=== PATIENT | female | born 1985 | race Caucasian/White ===

== ENCOUNTER 2016-11-10 01:32 | Emergency (ER) | payer OTHER ==
[~2016-11-10] VITALS: Ht 154.9 cm; Wt 88.0 kg
[~2016-11-10 01:32] MED LIST: MOTRIN800 MG PO; ZANTAC150 MG PO
[2016-11-10 01:41] VITALS: BP 104/64
--- NOTE | 2016-11-10 02:24 | NUR ---
PT TAKEN TO BED 7
--- NOTE | 2016-11-10 02:44 | NUR ---
PATIENT PRESENTS TO ED WITH VAGINAL DISCHARGE X1DAY . PT STATES THE DISCHARGE IS WATERY AND RED/BROWN IN COLOR. PT REPORTS BEING 8 WEEKS AT THIS TIME . DENIES N/V/D; SKIN IS PINK/WARM/DRY; AAOX4 WITH EVEN AND STEADY GAIT; LUNGS CLEAR BL; HR EVEN AND REGULAR; PT DENIES ANY FEVER, CP, SOB, OR COUGH AT THIS TIME; PATIENT STATES PAIN OF 0/10 AT THIS TIME; VSS; PATIENT POSITIONED FOR COMFORT; HOB ELEVATED; BEDRAILS UP X2; BED DOWN. ER MD MADE AWARE OF PT STATUS.
--- NOTE | 2016-11-10 02:59 | NUR ---
Ultrasound at bedside.
[2016-11-10 04:10] VITALS: BP 108/63
--- NOTE | 2016-11-10 04:10 | NUR ---
Patient discharged with v/s stable. Written and verbal after care instructions given and explained. Patient verbalized understanding. Ambulatory with steady gait. All questions addressed prior to discharge. Advised to follow up with PMD.
== END 2016-11-10 04:10 | disposition home or self-care (01) ==
LOC: MED 01:32
DX: O26.891 Other specified pregnancy related conditions, first trimester (principal); N89.8 Other specified noninflammatory disorders of vagina; Z3A.08 8 weeks gestation of pregnancy
CPT/HCPCS: 36415; 76801; 81001; 86900; 86901; 87210; 99285; Q0092

== ENCOUNTER 2017-04-08 10:00 | Observation (INO) | payer OTHER ==
[~2017-04-08] VITALS: Ht 154.9 cm; Wt 90.7 kg
[~2017-04-08 10:00] MED LIST changes: +IBUP-974 PO; -MOTRIN800 MG PO; +RANI-287 PO; -ZANTAC150 MG PO
[2017-04-08] MEDS ORDERED: TERBUTALINE 1 MG/ML VIAL SUBQ SCH (13:05)
[2017-04-08] MEDS ORDERED: TERBUTALINE 1 MG/ML VIAL SUBQ ONE (13:11)
[2017-04-08] MEDS ORDERED: LACTATED RINGERS 1,000 ML IV SCH (13:55)
[2017-04-08] MEDS ORDERED: NACL 0.9% 1,000 ML IV SCH (15:45)
[2017-04-08] MEDS ORDERED: cefTRIAXone 2,000 MG in DEXTROSE 5% 100 ML IV SCH (16:00)
[2017-04-08 16:04] LABS: APPEARANCE,URINE CLEAR (CLEAR); BILIRUBIN,URINE NEGATIVE (NEGATIVE); BLOOD, URINE NEGATIVE (NEGATIVE); COLOR,URINE YELLOW (YELLOW); LEUKOCYTE ESTERASE ,URINE NEGATIVE (NEGATIVE); NITRITE, URINE NEGATIVE (NEGATIVE); PH,URINE 7.5 (5.0-9.0); PROTEIN,URINE NEGATIVE (NEGATIVE); UGLUCOSE NEGATIVE (NEGATIVE); UROBILINOGEN,URINE 0.2 EU/dL (0.2 - 1)
== END 2017-04-08 18:30 | disposition home or self-care (01) ==
LOC: MLD 10:00
PROVIDERS: ADMIT Obstetrics & Gynecology; ATTEND Obstetrics & Gynecology
DX: O26.893 Other specified pregnancy related conditions, third trimester (principal); R10.9 Unspecified abdominal pain; M54.5 Low back pain; Z3A.30 30 weeks gestation of pregnancy
CPT/HCPCS: 36415; 76770; 76805; 81003; 82731; G0378; J0696; J3105; J7060; J7120; Q0092; 96365; 96372

== ENCOUNTER 2017-06-18 18:05 | Inpatient (IN) | payer OTHER ==
[~2017-06-18] VITALS: Ht 154.9 cm; Wt 94.3 kg
[2017-06-18] MEDS ORDERED: CARBOPROST 250 MCG/ML AMP IM PRN (18:55)
[2017-06-18] MEDS ORDERED: METHYLERGONOVINE 0.2 MG/ML AMP IM PRN (18:55)
[2017-06-18] MEDS ORDERED: OXYTOCIN 10 UNITS/ML VIAL IM SCH (18:55)
[2017-06-18] MEDS ORDERED: PROMETHAZINE 25 MG/ML VIAL IVP PRN (18:55)
[2017-06-18] MEDS ORDERED: AMPICILLIN 2,000 MG in NACL 0.9% MINI-BAG PLUS 100 ML IV SCH (18:55)
[2017-06-18] MEDS ORDERED: MISOPROSTOL 25 MCG TAB VG SCH (20:00)
[2017-06-18] MEDS: LACTATED RINGERS 1,000 ML IV SCH (20:35)
[2017-06-18] MEDS ORDERED: AMPICILLIN 2,000 MG VIAL ONE (20:37)
[2017-06-18 21:35] LABS: APPEARANCE,URINE CLEAR (CLEAR); BILIRUBIN,URINE NEGATIVE (NEGATIVE); BLOOD, URINE NEGATIVE (NEGATIVE); COLOR,URINE YELLOW (YELLOW); LEUKOCYTE ESTERASE ,URINE NEGATIVE (NEGATIVE); NITRITE, URINE NEGATIVE (NEGATIVE); UGLUCOSE NEGATIVE (NEGATIVE)
[2017-06-18 22:04] LABS: BASOPHILS # (AUTO) 0.1 K/uL (0.00-0.22); BASOPHILS % (AUTO) 1.2 % (0.0-2.0); EOSINOPHILS # (AUTO) 0.1 K/uL (0-0.4); EOSINOPHILS % (AUTO) 0.8 % (0.0-4.0); HEMATOCRIT 35.7 % (36-48); HEMOGLOBIN 11.9 g/dL (12.0-16.0); LYMPHOCYTES # (AUTO) 2.5 K/uL (2.5-16.5); LYMPHOCYTES % (AUTO) 25.6 % (20.5-51.1); MEAN CORPUSCULAR HEMOGLOBIN 29 pg (27-31); MEAN CORPUSCULAR HGB CONC 33 g/dL (33-37); MEAN CORPUSCULAR VOLUME 88 fL (80-94); MONOCYTES # (AUTO) 0.5 K/uL (0.8-1.0); MONOCYTES % (AUTO) 4.6 % (1.7-9.3); NEUTROPHILS # (AUTO) 6.6 K/uL (1.8-7.7); NEUTROPHILS % (AUTO) 67.8 % (42.2-75.2); RED BLOOD CELL COUNT(AUTO) 4.04 MIL/uL (4.20-5.40); RED CELL DISTRIBUTION WIDTH 13.9 % (11.6-13.7); WHITE BLOOD COUNT (AUTO) 9.8 K/uL (4.8-10.8)
[2017-06-18 22:05] LABS: PLATELET COUNT (AUTO) 82 K/uL (140-450)
[2017-06-18] MEDS ORDERED: ALUMINUM HYD/MAG/SIMETHICONE 30 ML UDC PO PRN (22:50)
[2017-06-19] MEDS ORDERED: AMPICILLIN 1,000 MG VIAL ONE ×7 (00:26→23:34)
[2017-06-19] MEDS ORDERED: MISOPROSTOL 25 MCG TAB ONE ×3 (00:40→19:38)
[2017-06-19] MEDS ORDERED: OXYTOCIN 20 UNITS/LR PREMIX 1,000 ML IV ONE (05:56)
[2017-06-19] MEDS: LACTATED RINGERS 1,000 ML IV SCH ×2 (06:10→15:25)
[2017-06-19] MEDS ORDERED: OXYTOCIN 20 UNITS in LACTATED RINGERS 1,000 ML IV SCH (07:00)
[2017-06-19] MEDS: NALBUPHINE HYDROCHLORIDE 10 MG/ML VIAL IVP PRN ×3 (08:18→23:15)
[2017-06-19] MEDS ORDERED: NALBUPHINE HYDROCHLORIDE 10 MG/ML VIAL ONE ×3 (08:22→23:15)
--- NOTE | 2017-06-19 10:55 | NUR ---
PATIENT HAS BEEN SCREENED AND CATEGORIZED LOW NUTRITION RISK. PATIENT WILL BE SEEN WITHIN 7 DAYS OF ADMISSION. 06/25/[address]
[2017-06-19] MEDS: AMPICILLIN 1,000 MG in NACL 0.9% 50 ML IV SCH ×2 (12:38→16:45)
[2017-06-20] MEDS ORDERED: MISOPROSTOL 25 MCG TAB ONE ×2 (00:10→04:55)
[2017-06-20] MEDS: LACTATED RINGERS 1,000 ML IV SCH ×2 (01:00→19:49)
[2017-06-20] MEDS ORDERED: AMPICILLIN 1,000 MG VIAL ONE ×4 (03:47→21:17)
[2017-06-20 07:25] LABS: BASOPHILS # (AUTO) 0.1 K/uL (0.00-0.22); BASOPHILS % (AUTO) 0.5 % (0.0-2.0); EOSINOPHILS % (AUTO) 0.4 % (0.0-4.0); HEMATOCRIT 35.3 % (36-48); HEMOGLOBIN 12.1 g/dL (12.0-16.0); LYMPHOCYTES % (AUTO) 18.6 % (20.5-51.1); MEAN CORPUSCULAR HEMOGLOBIN 30 pg (27-31); MEAN CORPUSCULAR HGB CONC 34 g/dL (33-37); MEAN CORPUSCULAR VOLUME 88 fL (80-94); MONOCYTES # (AUTO) 0.5 K/uL (0.8-1.0); MONOCYTES % (AUTO) 4.7 % (1.7-9.3); NEUTROPHILS # (AUTO) 8.1 K/uL (1.8-7.7); NEUTROPHILS % (AUTO) 75.8 % (42.2-75.2); PLATELET COUNT (AUTO) 81 K/uL (140-450); RED BLOOD CELL COUNT(AUTO) 4.01 MIL/uL (4.20-5.40); RED CELL DISTRIBUTION WIDTH 13.8 % (11.6-13.7); WHITE BLOOD COUNT (AUTO) 10.7 K/uL (4.8-10.8)
[2017-06-20] MEDS ORDERED: AMPICILLIN 2,000 MG VIAL ONE (07:31)
[2017-06-20] MEDS ORDERED: NALBUPHINE HYDROCHLORIDE 10 MG/ML VIAL ONE ×3 (08:16→20:48)
[2017-06-20] MEDS: NALBUPHINE HYDROCHLORIDE 10 MG/ML VIAL IVP PRN ×2 (08:18→14:22)
[2017-06-20 08:25] LABS: HEPATITIS B SURFACE ANTIGEN Negative (Negative)
[2017-06-20] MEDS ORDERED: MORPHINE SULFATE 10 MG/ML SYR IVP PRN (16:25)
[2017-06-20] MEDS ORDERED: MORPHINE SULFATE 10 MG/ML SYR ONE (16:31)
[2017-06-20] MEDS ORDERED: PROMETHAZINE 25 MG/ML VIAL ONE (16:31)
[2017-06-20] MEDS ORDERED: NALOXONE 0.4 MG/ML VIAL ONE (17:30)
[2017-06-20] MEDS ORDERED: OXYTOCIN 10 UNITS/ML VIAL ONE (18:01)
[2017-06-20] MEDS ORDERED: NALBUPHINE 10 MG/ML AMP IVP PRN (20:55)
[2017-06-20] MEDS: AMPICILLIN 1,000 MG in NACL 0.9% 50 ML IV SCH (21:16)
[2017-06-20] MEDS ORDERED: ceFAZolin 1,000 MG VIAL ONE (22:12)
[2017-06-20] MEDS ORDERED: METHYLERGONOVINE 0.2 MG/ML AMP IM PRN (22:30)
[2017-06-20] MEDS ORDERED: MEASLES, MUMPS, AND RUBELLA 1 VIAL SQVAC PRN (22:30)
[2017-06-20] MEDS ORDERED: OXYTOCIN 10 UNITS/ML VIAL IM PRN (22:30)
[2017-06-20] MEDS ORDERED: BENZOCAINE/MENTHOL 20%-0.5% 60 GM CAN TP PRN (22:30)
[2017-06-20] MEDS ORDERED: TEMAZEPAM 15 MG CAP PO PRN (22:30)
[2017-06-20] MEDS ORDERED: HYDROcodone/APAP 5/325 MG 1 TAB TAB PO PRN (22:30)
[2017-06-20] MEDS ORDERED: oxyCODONE/APAP 5/325 MG 1 TAB TAB PO PRN (22:30)
[2017-06-21] MEDS: IBUPROFEN 800 MG TAB PO PRN ×3 (06:27→21:12)
[2017-06-21 06:36] LABS: HEMATOCRIT 32.6 % (36-48)
[2017-06-21] MEDS ORDERED: DOCUSATE SOD/SENNA 50/8.6 MG 1 TAB PO SCH (21:00)
[2017-06-22] MEDS: IBUPROFEN 800 MG TAB PO PRN (04:48)
== END 2017-06-22 13:35 | disposition home or self-care (01) | DRG 560 ==
LOC: MLD 18:05 → MFCC 06-21 01:07
PROVIDERS: ADMIT Obstetrics & Gynecology; ATTEND Obstetrics & Gynecology
PROC: 10E0XZZ Delivery of Products of Conception, External Approach (ICD-10-PCS; principal; 2017-06-20)
PROC: 3E033VJ Introduction of Other Hormone into Peripheral Vein, Percutaneous Approach (ICD-10-PCS; 2017-06-20)
DX: O99.824 Streptococcus B carrier state complicating childbirth (principal); O69.89X0 Labor and delivery complicated by other cord complications, not applicable or unspecified; Z37.0 Single live birth; Z3A.39 39 weeks gestation of pregnancy; O89.4 Spinal and epidural anesthesia-induced headache during the puerperium
CPT/HCPCS: 36415; 51702; 59200; 59409; 76805; 76819; 81003; 85018; 85025; 86592; 86762; 86886; 86900; 86901; 87340; C1758; J0290; J0690; J2270; J2300; J2310; J2550; J2590; J7120; Q0092

== ENCOUNTER 2021-03-10 06:14 | Day surgery (SDC) | payer OTHER, SELFPAY ==
[~2021-03-10] VITALS: Ht 154.9 cm; Wt 90.3 kg
[2021-03-10 07:25] LABS: ALBUMIN 3.7 g/dL (3.4-5.0); ANION GAP 12.4 (8-16); CARBON DIOXIDE 26.4 mmol/L (21-32); CREATININE 0.7 mg/dL (0.6-1.3); POTASSIUM 3.8 mmol/L (3.5-5.1); TOTAL BILIRUBIN 0.7 mg/dL (0.0-1.0)
[2021-03-10] MEDS ORDERED: ONDANSETRON 4 MG/2 ML VIAL IVP PRN (08:15)
[2021-03-10] MEDS ORDERED: diphenhydrAMINE 50 MG/ML VIAL IVP PRN (08:15)
[2021-03-10] MEDS ORDERED: LACTATED RINGERS 1,000 ML IV SCH (08:15)
[2021-03-10] MEDS ORDERED: MEPERIDINE 25 MG/ML SYR IVP PRN (08:15)
[2021-03-10] MEDS ORDERED: KETAMINE 500 MG/5 ML VIAL ONE (08:25)
[2021-03-10] MEDS ORDERED: PROPOFOL 200 MG/20 ML VIAL IV ONE ×2 (08:25)
[2021-03-10] MEDS ORDERED: LIDOCAINE 2% 100 MG/5 ML SYR IVP ONE (08:25)
[2021-03-10] MEDS ORDERED: METOCLOPRAMIDE 10 MG/2 ML INJ VIAL ONE (08:25)
[2021-03-10] MEDS ORDERED: ONDANSETRON 4 MG/2 ML VIAL ONE (08:25)
[2021-03-10] MEDS ORDERED: fentaNYL citrate 0.05 MG/ML VIAL ONE (08:25)
== END 2021-03-10 11:10 | disposition home or self-care (01) ==
LOC: MMU 06:14 → MOR 06:14
PROVIDERS: ATTEND Internal Medicine Gastroenterology
DX: K62.5 Hemorrhage of anus and rectum (principal); K58.8 Other irritable bowel syndrome; F41.9 Anxiety disorder, unspecified; Z79.1 Long term (current) use of non-steroidal anti-inflammatories (NSAID); Z79.899 Other long term (current) drug therapy; Z20.822 Contact with and (suspected) exposure to COVID-19
CPT/HCPCS: 36415; 43235; 45380; 71045; 80053; 81025; J2001; J2405; J2704; J2765; J3010; J7030; U0003

== ENCOUNTER 2022-03-29 10:44 | Emergency (ER) | payer OTHER ==
[~2022-03-29] VITALS: Ht 154.9 cm; Wt 94.8 kg
[2022-03-29 10:49] VITALS: BP 134/87
--- NOTE | 2022-03-29 10:59 | NUR ---
PT IN GOWN ON CARDIAC/PULSE OX MONITOR
--- NOTE | 2022-03-29 11:05 | NUR ---
36 Y/O FEMALE C/O NONPRODUCTIVE COUGH, SOB, DIFFICULTY BREATHING AND CHEST PAIN WHILE COUGHING X6 DAYS. DENIES ANYONE SICK AT HOME. PT IS COVID VACCINATED. WHEEZES AUSCULTATED THROUGHOUT. PT DENIES FEVER/CHILLS. SPO2 97%, PT WITH DIFFICULTY TALKING IN COMPLETE SENTENCES. PT REPORTS USING ALBUTEROL INHALER THIS MORNING WITHOUT RELIEF. PT HAS INHALER SHE HAS HAD CHEST CONGESTION IN THE PAST WHEN SHE WAS SICK. PT IN GOWN, ON SENIOR CATEGORY MANAGER. HOB ELEVATED 90 DEGREES. PT A/O X4 WITH EVEN AND UNLABORED RESPIRATIONS. PMH:DENIES NKDA
[2022-03-29] MEDS: ALBUTEROL SULFATE/IPRATROPIU 3 ML SOL IH ONE ×2 (11:07→11:18)
--- NOTE | 2022-03-29 11:08 | NUR ---
RT AT BEDSIDE FOR BREATHING TREATMENT
--- NOTE | 2022-03-29 11:34 | NUR ---
[facility] INFLUENZA SAMPLES COLLECTED AND HANDED TO ROZ EISENBERG TECH
[2022-03-29] MEDS: methylPREDNISolone SS 125 MG/2 ML VIAL IVP ONE (12:03)
[2022-03-29 12:27] LABS: BASOPHILS % (AUTO) 0.3 % (0.0-2.0); EOSINOPHILS % (AUTO) 0.1 % (0.0-4.0); HEMATOCRIT 34.8 % (36-48); HEMOGLOBIN 11.5 g/dL (12.0-16.0); LYMPHOCYTES # (AUTO) 2.8 K/uL (2.5-16.5); MEAN CORPUSCULAR HEMOGLOBIN 28 pg (27-31); MEAN CORPUSCULAR HGB CONC 33 g/dL (33-37); MEAN CORPUSCULAR VOLUME 85.7 fL (80-94); MONOCYTES # (AUTO) 0.7 K/uL (0.8-1.0); MONOCYTES % (AUTO) 9.9 % (1.7-9.3); NEUTROPHILS % (AUTO) 52.7 % (42.2-75.2); PLATELET COUNT (AUTO) 170 K/uL (140-450); RED BLOOD CELL COUNT(AUTO) 4.06 MIL/uL (4.20-5.40); RED CELL DISTRIBUTION WIDTH 14.4 % (11.6-13.7); WHITE BLOOD COUNT (AUTO) 7.5 K/uL (4.8-10.8)
[2022-03-29 12:52] LABS: ALBUMIN 3.7 g/dL (3.4-5.0); ANION GAP 11.4 (8-16); ASPARTATE AMINOTRANSFERASE 15 U/L (15-37); CARBON DIOXIDE 27.1 mmol/L (21-32); CHLORIDE 107 mmol/L (98-107); CREATININE 0.6 mg/dL (0.6-1.3); GFR ARICAN-AMERICAN 145 mL/min (>90); GLUCOSE 93 mg/dL (74-106); POTASSIUM 3.5 mmol/L (3.5-5.1); SODIUM SERUM 142 mmol/L (136-145); TOTAL BILIRUBIN 0.1 mg/dL (0.0-1.0); UREA NITROGEN, BLOOD 13 mg/dL (7-18)
[2022-03-29] MEDS ORDERED: PRED20TA5 PO (12:52)
[2022-03-29] MEDS ORDERED: SUD30 PO (12:52)
[2022-03-29] MEDS ORDERED: ALBU0.0912 IH (12:52)
[2022-03-29 13:52] VITALS: BP 112/71
--- NOTE | 2022-03-29 13:57 | NUR ---
IV removed, catheter intact and site benign. Applied folded 4x4 gauze and tape to stop bleeding.
--- NOTE | 2022-03-29 14:10 | NUR ---
Patient discharged with v/s stable. Written and verbal after care instructions ABOUT NONSPECIFIC CHEST PAIN AND ASTHMA given and explained. Patient alert, oriented and verbalized understanding of instructions. Ambulatory with steady gait. All questions addressed prior to discharge. ID band removed. Patient advised to follow up with PMD. Rx of ALBUTEROL SULFATE, PREDNISONE, SUDAFED given. Patient educated on indication of medication including possible reaction and side effects. Opportunity to ask questions provided and answered.
== END 2022-03-29 14:10 | disposition home or self-care (01) ==
LOC: MED 10:44
DX: J45.901 Unspecified asthma with (acute) exacerbation (principal); Z20.822 Contact with and (suspected) exposure to COVID-19; R03.0 Elevated blood-pressure reading, without diagnosis of hypertension; D64.9 Anemia, unspecified; K21.9 Gastro-esophageal reflux disease without esophagitis; Z90.49 Acquired absence of other specified parts of digestive tract; Z98.890 Other specified postprocedural states; Z79.899 Other long term (current) drug therapy
CPT/HCPCS: 36415; 71045; 80053; 84484; 85025; 85379; 87426; 87804; 93005; 94640; 96374; 99285; J2930; Q0092